=== PATIENT | female | born 1940 ===

== ENCOUNTER 2017-06-05 08:15 | Inpatient (IN) | payer OTHER ==
[~2017-06-05] VITALS: Ht 160 cm; Wt 81.6 kg
[~2017-06-05 08:15] MED LIST: ADULT ASPIRIN81 MG PO; AVAPRO300 MG PO; CARDIOVID PLUS1 CAP PO; COD LIVER OIL1 EACH PO; COREG CR10 MG PO; HUMALOG100 U/ML SQ; HYDRALAZINE HCL50 MG PO; INTEGRA CAPSUL1 EACH PO; LANTUS SOLOSTAR3 ML SC; LOVENOX30 MG/0.3 SQ; PERCOCET 5/3251 TAB PO; PROZAC10 MG PO; VYTORIN 10-40 M1 TAB PO
[2017-06-20] MEDS ORDERED: CARVEDILOL6.25 MG PO (10:12)
[2017-06-20] MEDS ORDERED: HYDRALAZINE HCL50 MG PO (10:12)
[2017-06-20] MEDS ORDERED: ASA-EC81 MG PO (10:12)
[2017-06-20] MEDS ORDERED: ZOCOR40 MG PO (10:12)
[2017-06-20] MEDS ORDERED: ZETIA10 MG PO (10:12)
[2017-06-20] MEDS ORDERED: AVAPRO300 MG PO (10:12)
[2017-06-23] MEDS ORDERED: PERCOCET 5-3251 EACH PO (10:36)
[2017-06-23] MEDS ORDERED: XARELTO10 MG PO (10:36)
[2017-06-23] MEDS ORDERED: CIPRO500 MG PO (10:36)
== END 2017-06-23 12:32 | disposition home or self-care (01) | DRG 469 ==
LOC: O/R 06-19 06:00 → SURH 06-19 06:00 → SURG 06-19 13:17 → SURH 06-19 13:50
PROVIDERS: Orthopaedic Surgery
PROC: 0QNF0ZZ Release Left Patella, Open Approach (ICD-10-PCS; 2017-06-19)
PROC: 0SRD0J9 Replacement of Left Knee Joint with Synthetic Substitute, Cemented, Open Approach (ICD-10-PCS; principal; 2017-06-19 12:00)
PROC: 3E0F7GC Introduction of Other Therapeutic Substance into Respiratory Tract, Via Natural or Artificial Opening (ICD-10-PCS; 2017-06-20)
DX: M17.12 Unilateral primary osteoarthritis, left knee (principal); N18.6 End stage renal disease; D62 Acute posthemorrhagic anemia; N17.8 Other acute kidney failure; I12.0 Hypertensive chronic kidney disease with stage 5 chronic kidney disease or end stage renal disease; E11.9 Type 2 diabetes mellitus without complications; D63.1 Anemia in chronic kidney disease; M81.0 Age-related osteoporosis without current pathological fracture; M22.12 Recurrent subluxation of patella, left knee; E66.01 Morbid (severe) obesity due to excess calories

== ENCOUNTER 2019-10-30 11:00 | Inpatient (IN) | payer OTHER ==
[~2019-10-30] VITALS: Ht 160 cm; Wt 81.2 kg
[~2019-10-30 11:00] MED LIST changes: +ASA-EC81 MG PO; +CARVEDILOL6.25 MG PO; +CIPRO500 MG PO; +PERCOCET 5-3251 EACH PO; +XARELTO10 MG PO; +ZETIA10 MG PO; +ZOCOR40 MG PO
[2019-11-03] MEDS ORDERED: COZAAR100 MG PO (15:55)
[2019-11-03] MEDS ORDERED: CRESTOR10 MG PO (15:56)
[2019-11-03] MEDS ORDERED: LANTUS SOL100 UNIT/1 (15:56)
== END 2019-11-08 10:51 | disposition home or self-care (01) | DRG 741 ==
LOC: SURG 11-06 06:00 → O/R 11-06 06:00 → SURH 11-06 10:30 → O/R 11-06 11:00 → SURG 11-06 16:31
PROVIDERS: ADMIT Obstetrics & Gynecology Gynecologic Oncology; ATTEND Obstetrics & Gynecology Gynecologic Oncology
PROC: 0UT70ZZ Resection of Bilateral Fallopian Tubes, Open Approach (ICD-10-PCS; 2019-11-06)
PROC: 0UT20ZZ Resection of Bilateral Ovaries, Open Approach (ICD-10-PCS; 2019-11-06)
PROC: 07BC0ZX Excision of Pelvis Lymphatic, Open Approach, Diagnostic (ICD-10-PCS; 2019-11-06)
PROC: 0UT90ZZ Resection of Uterus, Open Approach (ICD-10-PCS; principal; 2019-11-06 10:30)
DX: C54.1 Malignant neoplasm of endometrium (principal); E11.22 Type 2 diabetes mellitus with diabetic chronic kidney disease; E11.65 Type 2 diabetes mellitus with hyperglycemia; I12.9 Hypertensive chronic kidney disease with stage 1 through stage 4 chronic kidney disease, or unspecified chronic kidney disease; N18.2 Chronic kidney disease, stage 2 (mild); D63.1 Anemia in chronic kidney disease; Z79.4 Long term (current) use of insulin

== ENCOUNTER 2022-09-05 08:38 | Outpatient (CLI) | payer OTHER ==
[~2022-09-05 08:38] MED LIST changes: +COZAAR100 MG PO; +CRESTOR10 MG PO; +LANTUS SOL100 UNIT/1
== END 2022-09-05 08:55 | disposition home or self-care (01) ==
LOC: LAB 08:38
PROVIDERS: ATTEND Colon & Rectal Surgery
DX: Z01.812 Encounter for preprocedural laboratory examination (principal); Z01.811 Encounter for preprocedural respiratory examination; Z01.810 Encounter for preprocedural cardiovascular examination; Z11.59 Encounter for screening for other viral diseases; Z20.828 Contact with and (suspected) exposure to other viral communicable diseases; Z20.822 Contact with and (suspected) exposure to COVID-19; K59.00 Constipation, unspecified; N39.0 Urinary tract infection, site not specified; K62.5 Hemorrhage of anus and rectum; D59.8 Other acquired hemolytic anemias; D68.9 Coagulation defect, unspecified; R15.9 Full incontinence of feces

== ENCOUNTER 2022-09-12 12:31 | Outpatient (CLI) | payer OTHER | END 2022-09-12 12:35 | disposition home or self-care (01) | LOC: LAB 12:31 | PROVIDERS: ATTEND Colon & Rectal Surgery | DX: Z11.59 Encounter for screening for other viral diseases (principal); Z20.828 Contact with and (suspected) exposure to other viral communicable diseases ==

== ENCOUNTER 2022-09-15 09:00 | Day surgery (SDC) | payer OTHER ==
[~2022-09-15] VITALS: Ht 162.6 cm; Wt 69.9 kg
== END 2022-09-15 17:10 | disposition home or self-care (01) ==
LOC: CIR.AMB 09:00
PROVIDERS: ATTEND Colon & Rectal Surgery
DX: R15.9 Full incontinence of feces (principal); R32 Unspecified urinary incontinence; Z20.822 Contact with and (suspected) exposure to COVID-19; Z88.0 Allergy status to penicillin
CPT/HCPCS: 64581; 95971; C1778

== ENCOUNTER 2022-09-29 09:31 | Day surgery (SDC) | payer OTHER | END 2022-09-29 19:55 | disposition home or self-care (01) | LOC: CIR.AMB 09:31 | PROVIDERS: ATTEND Colon & Rectal Surgery | DX: R15.9 Full incontinence of feces (principal); R32 Unspecified urinary incontinence; Z20.822 Contact with and (suspected) exposure to COVID-19; Z88.0 Allergy status to penicillin | CPT/HCPCS: 64590; 95972; C1767 ==

== ENCOUNTER 2023-12-26 06:55 | Day surgery (SDC) | payer OTHER ==
[2023-12-26] MEDS ORDERED: ONDANSETRON HCL 2 MG/ML VIAL IV ONE (11:00)
[2023-12-26] MEDS ORDERED: DIPHENHYDRAMINE HCL 50 MG/ML VIAL 1ML IV ONE (11:00)
[2023-12-26] MEDS ORDERED: fentaNYL CITRATE 50 MCG/ML AMPUL IV PUSH ONE (11:00)
[2023-12-26] MEDS ORDERED: MIDAZOLAM HCL 2 MG/2 ML VIAL IV ONE (11:00)
== END 2023-12-26 12:40 | disposition home or self-care (01) ==
LOC: AMB-ENDOS 06:55 → CIR.AMB 13:00
PROVIDERS: ATTEND Colon & Rectal Surgery
DX: K55.20 Angiodysplasia of colon without hemorrhage (principal); K57.30 Diverticulosis of large intestine without perforation or abscess without bleeding